=== PATIENT | male | born 1970 | race Caucasian/White ===

== ENCOUNTER → 2016-07-07 | Outpatient (CLI) | payer OTHER, MEDICARE ==
[~2016-07-07] MED LIST: ADVIL PO; AMIT25TA2 PO; ANTIBIOTIC EYE OU; BACL10TA2 OR; BACL10TA2 PO; CYMB1CAP PO; DICL25TA OR; DICL25TA PO; DICL500C PO; DICLOFENAC PO; GABA400C PO; HUMERA INJ; LEVI10TA OR; METH IM; METH2.5T PO; NEUR400C PO; NEXI20CA PO; PERC5TAB8 OR; PRED1TA PO; PRED2.5T PO; PRED5SOL2 PO; PRED5TAB PO; REST0.05 OU; SENN15TA2 PO; SIMV20TA2 PO; SOMA350T OR; TRAM50TA2 OR; VICO5TAB OR; VICO7.5T11 PO; ZOMI5TAB PO
--- NOTE | 2016-07-19 00:29 | ECWPNPC ---
PATIENT NAME: ANNETTA PAUL : 1970 GENDER: MALE VISIT DATE: 07/07/2016 DISCHARGE DATE: 07/07/16 1154 VISIT LOCKED DATE TIME: PHYSICIAN: ONEIL MORALES RESOURCE: ONEIL MORALES REASON FOR APPOINTMENT 1. CERVICAL HISTORY OF PRESENT ILLNESS HISTORY OF PRESENT ILLNESS: HERE FOR F/UAND MANAGEMENT OF THORACIC,CERVICAL AND LOW BACK PAIN.CHIEF CONCERN IS LEFT ARM BURNING PAIN.RATING PAIN VAS 7/10. WAS UNABLE TO GET LYRICA FOR SOME REASON THAT I PRESCRIBED LAST VISIT.HAS TRIALED TPI IN RECENT PAST WITH A FEW DAYS OF PAIN RELIEF.TRIALED [facility] WITH MAYBE 1-2 WEEK IMPROVEMENT.HX OF RHEUMATOID ARTHRITIS.DISCUSSED MEDICATION AND INTERVENTIONAL TREATMENT OPTIONS. HAS DCS IN PLACE WHICH HE DOES NOT USE AND IS IN PROCESS OF TALKING WITH [employer] ([employer] RERESENTAT[employer].THIS HAS BEEN IN SINCE 011 FOR LBP W HX OF LUMBAR SURGERY. FALL RISK SCREENING: SCREENING :NO FALLS IN THE PAST YEAR CURRENT MEDICATIONS TAKING VITAMIN C 500 MG TABLET CHEWABLE DIRECTED ORALLY ONCE A DAY TAKING DICLOFENAC SODIUM 75 MG TABLET DELAYED RELEASE 1 TABLET ORALLY TWICE A DAY TAKING GABAPENTIN 400 MG CAPSULE 1 CAPSULE ORALLY QID TAKING ZONISAMIDE 50 MG CAPSULE 1 CAPSULE ORALLY TWICE DAILY TAKING DOXAZOSIN MESYLATE 4 MG TABLET 1 TABLET ORALLY BID TAKING DULOXETINE HCL 60 MG CAPSULE DELAYED RELEASE PARTICLES 1 CAPSULE ORALLY ONCE A DAY TAKING FAMOTIDINE 40 MG TABLET 1 TABLET ORALLY ONCE A DAY TAKING OMEPRAZOLE 20 MG CAPSULE DELAYED RELEASE 2 CAPSULES ORALLY ONCE A DAY TAKING RESTASIS 0.05 % EMULSION 1 INTO AFFECTED EYE OPHTHALMIC TWICE A DAY TAKING SILDENAFIL CIT[place] 100 MG TABLET 1 TABLET NEEDED ORALLY ONCE A DAY TAKING METHOTREXATE SODIUM .8 MG ORALLY WEEKLY TAKING ENBREL 25 MG SOLUTION RECONSTITUTED SUBCUTANEOUS WEEK;LY ON SAT TAKING TIZANIDINE HCL 4 MG TABLET 1 TABLET NEEDED ORALLY BEFORE BEDTIME MAY REPEAT 4 HRS AFTER MDD2 TAKING LYRICA 75 MG CAPSULE 1 CAPSULE ORALLY TWICE A DAY MDD2 NOT-TAKING CUSTOM DO NOT USE TRAMADOL 50 MG TABLET 0.5 ORALLY TWICE DAILY, NOTES: 04/27/16 0530 NOT-TAKING MULTIVITAMINS TABLET DIRECTED ORALLY NOT-TAKING GABAPENTIN 300 300 MG TABLET 1 TAB(S) ORAL AT BEDTIME MEDICATION LIST REVIEWED AND RECONCILED WITH THE PATIENT PAST MEDICAL HISTORY PROSTATITIS EPIDIDYMITIS RA ALLERGIES NONE SOCIAL HISTORY GENERAL: TOBACCO USE ARE YOU A:NONSMOKER 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 NEW PATIENT PAIN DIARY TODAY'S VISITNOTES FROM 0-10, WHAT LEVEL IS YOUR PAIN TODAY?0 PAIN CLINIC PFS, CLERGY, PUBLIC HEALTH REFERRALS PFS REFERRAL NEEDED?NO CLERGY REFERRAL NEEDED?NO PUBLIC HEALTH REFERRAL NEEDED?NO WAS THE PROVIDER NOTIFIED OF ANY PERTINENT INFO?NO PFS REFERRAL NEEDED?NO CLERGY REFERRAL NEEDED?NO PUBLIC HEALTH REFERRAL NEEDED?NO WAS THE PROVIDER NOTIFIED OF ANY PERTINENT INFO?NO REVIEW OF SYSTEMS CONSTITUTIONAL: ANY CHANGE IN YOUR MEDICAL CONDITION? NO . CHILLS NO . FEVER NO . INFECTION: DO YOU HAVE NEW INFECTIONS? NO . DO YOU HAVE HISTORY OF MRSA? NO . MUSCULOSKELETAL: ANY NEW PATTERNS OF PAIN OR NUMBNESS? NO . GASTROENTEROLOGY: ANY NEW CHANGE IN BOWEL CONTROL? NO . GENITOURINARY: ANY NEW CHANGE IN BLADDER CONTROL? NO . IS THERE A CHANCE YOU COULD BE ? NO . HEMATOLOGY/LYMPH: DO YOU TAKE ANY BLOOD THINNERS? (FOR EXAMPLE- COUMADIN, PLAVIX, AGGRENOX, PLATEL, PRADAXA, OR XARELTO) NO . WHEN WAS YOUR LAST DOSE? DATE: TIME: . NEUROLOGY: HAVE YOU FALLEN IN THE PAST 6 MONTHS? NO . ANY NEW EXTREMITY NUMBNESS OR WEAKNESS? NO . CARDIOLOGY: DO YOU HAVE A PACEMAKER OR DEFIBRILLATOR? NO . RESPIRATORY: HAVE YOU BEEN SICK IN THE PAST WEEK? NO . FEVER NO . FLU LIKE SYMPTOMS? NO . COUGH NO . INTEGUMENTARY: DO YOU HAVE ANY RASHES OR OPEN SORES? NO . ALLERGIC/IMMUNO: ARE YOU ALLERGIC TO SHELLFISH OR IV DYE? NO . ANY NEW ALLERGIES? NO . PSYCHIATRIC: DO YOU HAVE THOUGHTS OF HURTING YOURSELF OR SOMEONE ELSE? NO . ARE YOU ABUSED, NEGLECTED, OR IN AN UNSAFE ENVIRONMENT? NO . ENDOCRINOLOGY: ARE YOU DIABETIC? NO . OTHER: DO YOU NEED ANY PRESCRIPTIONS? NO . IF YES, PLEASE LIST: ____ . ANY NEW PROBLEMS WITH YOUR MEDICATIONS? NO . WHEN DID YOU LAST EAT? ____ . WHEN DID YOU LAST DRINK? ____ . WHAT DID YOU LAST DRINK? ____ . NAME OF PERSON DRIVING YOU HOME? ____ . DO YOU HAVE ANY OTHER QUESTIONS OR CONCERNS NO . REVIEWED BY: PROVIDER: ONEIL MORALES ACCOUNT GENERAL MANAGER . VITAL SIGNS WT 200 LBS, HT 72 IN, BMI 27.12 INDEX, BP 122/80 MM HG, HR 83 /MIN, RR 18 /MIN, TEMP 97.1 F, OXYGEN SAT % 97%, NA INITIALS SC11:22. EXAMINATION CERVICAL SPINE/NECK: RANGE OF MOTION OF NECK:LIMITED ROTATIONS W INCREASE IN PAIN W AROJM. SHOULDER JOINT:FULL AROJM W INCREASE IN SHOULDER PAIN W ELEVATION OF LEFT ARM ABOVE SHOULDER HEIGHT.. REFLEXES:DTRS IN THE ARMS ARE 2+ THROUGHOUT AND EQUAL BILATERALLY. SENSATIONS:NORMAL BILATERALLY. MOTOR STRENGTH:SLIGHT DECREASE IN MOTOR STRENGTH LEFT ARM COMPARED W RIGHT. VERTEBRAL SPINE TENDERNESS:POSITIVE OVER C-SPINE. TRAPEZIUS TENDERNESS:PRESENT ON LEFT SIDE. DIAGNOSTIC DATA:REVIEWED CT CERVICAL SPINE 04-28-16. ASSESSMENTS PAIN IN THORACIC SPINE - M54.6 (PRIMARY) THORACIC RADICULOPATHY - M54.14 CERVICAL SPONDYLOSIS WITH RADICULOPATHY - M47.22 TREATMENT PAIN IN THORACIC SPINE REFILL LYRICA CAPSULE, 75 MG, 1 CAPSULE, ORALLY, TWICE A DAY MDD2, 30 DAY(S), 60, REFILLS 2 CERVICAL EPIDURAL RIGHT [facility]:CERVICAL SPONDYLOSIS W LEFT ARM RADICULOPATHY PROCEDURE CODES FA211 ESTABILISHED PATIENT [facility] FACILITY CHARGE FOLLOW UP 2WKPOST (REASON: [facility]) ELECTRONICALLY SIGNED BY KELLIE ELENA ON 07/18/2016 AT 10:14 AM EST DISCLAIMER : THIS IS A VISIT SUMMARY EXTRACTED FROM THE [employer] CHART. IT IS NOT A COPY OF THE [employer] PROGRESS NOTE. MISAEL
== END ==
LOC: M PAIN 11:20
PROVIDERS: ATTEND Nurse Practitioner Family
DX: Z09 Encounter for follow-up examination after completed treatment for conditions other than malignant neoplasm (principal); M54.6 Pain in thoracic spine; M47.22 Other spondylosis with radiculopathy, cervical region; M06.9 Rheumatoid arthritis, unspecified; Z79.899 Other long term (current) drug therapy

== ENCOUNTER → 2017-03-20 | Outpatient (CLI) | payer OTHER, MEDICARE ==
[~2017-03-20] MED LIST changes: +COLE1TAB PO; +DOXA1TAB40 PO; +FAMO40TA3 PO; +OMEP20CA3 PO; +RIZA10TA4 PO; +SULF50TA PO; +TIZA4CAP3 PO; +TYLE325T5 PO; +ZONI100C2 PO
[2017-03-20 12:08] LABS: BASO % 0.7 % (0.0-1.0); EOS # 0.1 10^3/uL (0.0-0.50); EOS % 1.8 % (0.0-3.0); IMMATURE GRANULOCYTE % 0.4 % (0-0); LYMPH # 1.5 10^3/uL (1.5-4.5); LYMPH % 33.8 % (24.0-44.0); MEAN CORPUSCULAR HEMOGLOBIN 31.6 pg (27.0-33.0); MEAN CORPUSCULAR HGB CONC 32.8 g/dl (32.0-36.5); MEAN CORPUSCULAR VOLUME 96.2 fl (80.0-96.0); MONO # 0.3 10^3/uL (0.0-0.8); MONO % 7.6 % (0.0-5.0); NEUTROPHILS # 2.5 10^3/uL (1.8-7.7); NEUTROPHILS % 55.7 % (36.0-66.0); PLATELET COUNT, AUTOMATED 222 10^3/uL (150-450); RED CELL DISTRIBUTION WIDTH 12.5 % (11.5-14.5); WHITE BLOOD COUNT 4.5 10^3/uL (4.0-10.0)
[2017-03-20 12:26] LABS: INR 0.93
[2017-03-20 13:19] LABS: ALBUMIN 4.3 GM/DL (3.2-5.2); ALBUMIN/GLOBULIN RATIO 1.39 (1.00-1.93); ALKALINE PHOSPHATASE 83 U/L (45-117); ALT/SGPT 47 U/L (12-78); ANION GAP 5 MEQ/L (8-16); AST/SGOT 27 U/L (15-37); BILIRUBIN,TOTAL 0.5 MG/DL (0.2-1.0); BLOOD UREA NITROGEN 19 MG/DL (7-18); CALCIUM LEVEL 8.5 MG/DL (8.5-10.1); CARBON DIOXIDE LEVEL 29 MEQ/L (21-32); CHLORIDE LEVEL 105 MEQ/L (98-107); CREATININE FOR GFR 1.07 MG/DL (0.70-1.30); GLOMERULAR FILTRATION RATE > 60.0 (>60); GLUCOSE, FASTING 89 MG/DL (70-105); SODIUM LEVEL 139 MEQ/L (136-145); TOTAL PROTEIN 7.4 GM/DL (6.4-8.2)
== END ==
LOC: M LAB 10:44
PROVIDERS: ATTEND Physician Assistant
DX: T85.113A Breakdown (mechanical) of implanted electronic neurostimulator, generator, initial encounter (principal); Y83.1 Surgical operation with implant of artificial internal device as the cause of abnormal reaction of the patient, or of later complication, without mention of misadventure at the time of the procedure

== ENCOUNTER → 2017-03-20 | Outpatient (CLI) | payer OTHER, MEDICARE ==
--- NOTE | 2017-03-20 21:12 | ECGEPIP ---
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
--- NOTE | 2017-03-21 02:28 | REP ---
Clinical: Stimulator malfunction . Comparison: 12/22/2013 . Technique: PA and lateral. Findings: The mediastinum and cardiac silhouette are normal. A spinal stimulator device is identified in the mid thoracic level. The lung sosa are clear and without acute consolidation, effusion, or pneumothorax. The skeletal structures are intact and normal. Impression: 1. No acute cardiopulmonary process. Signed by Jose Roberto Alvarenga MD 03/21/2017 02:20 A
== END ==
LOC: M EKG 10:48
PROVIDERS: ATTEND Neurological Surgery
DX: T85.113A Breakdown (mechanical) of implanted electronic neurostimulator, generator, initial encounter (principal); Y83.1 Surgical operation with implant of artificial internal device as the cause of abnormal reaction of the patient, or of later complication, without mention of misadventure at the time of the procedure

== ENCOUNTER 2017-03-26 06:08 | Day surgery (SDC) | payer OTHER ==
[~2017-03-26] VITALS: Ht 177.8 cm; Wt 86.2 kg
[2017-03-26] VITALS (7 sets, daily range): BP systolic 103–133; BP diastolic 52–77
[~2017-03-26 06:08] MED LIST changes: -TYLE325T5 PO
[2017-03-26] MEDS ORDERED: LIDOCAINE 1% SDV 5 ML VIAL SQ PRN (06:30)
[2017-03-26] MEDS ORDERED: BACITRACIN PWD 50,000 UNITS VIAL As Ordered ONE (06:35)
[2017-03-26] MEDS ORDERED: BUPIVACAINE LIPOSOME/PF 1.3% 20 ML VIAL (13.3MG/ML)(EXPAREL) As Ordered ONE (06:36)
[2017-03-26] MEDS ORDERED: BUPIVACAINE HCL 0.5% 10 ML VIAL As Ordered ONE (06:36)
[2017-03-26] MEDS ORDERED: LR 1,000 ML IV ONE (07:30)
[2017-03-26] MEDS ORDERED: PROPOFOL 200 MG/20 ML VIAL As Ordered ONE (08:21)
[2017-03-26] MEDS ORDERED: LIDOCAINE 2% INJ 100 MG/5 ML SDV (FOR ANES.) As Ordered ONE (08:21)
[2017-03-26] MEDS ORDERED: ONDANSETRON 4MG/2ML VIAL (J2405) As Ordered ONE (08:21)
[2017-03-26] MEDS ORDERED: fentaNYL 100 MCG/2 ML INJECTION (J3010) As Ordered ONE ×2 (08:21→10:14)
[2017-03-26] MEDS ORDERED: ROCURONIUM BROMIDE 50 MG/5 ML VIAL/SYRINGE As Ordered ONE (08:21)
[2017-03-26] MEDS ORDERED: MIDAZOLAM INJ 2 MG/2 ML VIAL (J2250) As Ordered ONE (08:21)
[2017-03-26] MEDS ORDERED: dexameTHASONE 4 MG/ML 1ML VIAL (J1100) As Ordered ONE (08:21)
[2017-03-26] MEDS ORDERED: NEOSTIGMINE 10 MG/10 ML VIAL (J2710) As Ordered ONE (08:21)
[2017-03-26] MEDS ORDERED: GLYCOPYRROLATE INJ 0.2 MG/ML 2 ML VIAL As Ordered ONE (08:21)
[2017-03-26] MEDS ORDERED: ePHEDrine SULFATE 25 MG/5 ML(5MG/ML) SYRINGE As Ordered ONE ×3 (08:32→09:28)
[2017-03-26] MEDS ORDERED: OMEPRAZOLE 20 MG CAP PO SCH (09:00)
[2017-03-26] MEDS ORDERED: BACITRACIN OINT 30GM As Ordered ONE (09:42)
--- NOTE | 2017-03-26 10:05 | REP ---
Partial thoracic spine series: Three views. History: Removal of dorsal column stimulator. 11 seconds of fluoroscopy time is reported. Findings: A sequence of three last image hold fluoroscopic spot radiographs of the thoracic spine are presented documenting intraoperative probe and forceps position. Signed by Matthias Houser MD 03/26/2017 03:03 P
[2017-03-26] MEDS: fentaNYL 100 MCG/2 ML INJECTION (J3010) IV PRN ×4 (10:17→10:55)
[2017-03-26] MEDS ORDERED: ONDANSETRON 4MG/2ML VIAL (J2405) IV PRN (10:30)
[2017-03-26] MEDS ORDERED: LR 1,000 ML IV SCH (10:30)
[2017-03-26] MEDS ORDERED: PERCOCET 5MG/325MG TAB PO PRN (10:45)
[2017-03-26] MEDS: MORPHINE 2 MG/ML 1ML SYRINGE IV PRN ×2 (12:06→17:38)
[2017-03-26] MEDS: ACETAMINOPHEN TAB 650MG DOSE (2X325MG) PO SCH ×3 (14:20→20:35)
[2017-03-26] MEDS ORDERED: tiZANidine 4 MG TAB PO PRN ×2 (19:00→20:15)
--- NOTE | 2017-03-26 19:27 | ROOPDOC ---
[facility] Report Of Operation Report of Operation DATE OF SURGERY: 03/26/2017 SURGEON: Dr. Betty Marte CHAIN PERSON: None PREOPERATIVE DIAGNOSIS: SCS system removal request for MRI imaging POSTOPERATIVE DIAGNOSIS: Same PROCEDURE PERFORMED: 1. SCS system removal. ANESTHESIA: GETA + 20 cc [employer] . ESTIMATED BLOOD LOSS: 50 cc. FINDINGS : SCS system; no infection. DRAINS: 0 COMPLICATIONS: None. DISPOSITION: Stable to the PACU. INDICATIONS FOR THE PROCEDURE HISTORY: Mr. casey is a 46 y/o M with past medical history of previous lumbar surgery , low back and leg pain, which was treated by implantation of spinal cord stimulator (SCS). Recently he developed neck and arm pain and neurologist requested removal of [id number] SCS system in order to have instrumental evaluation of new symptoms. SURGICAL RISKS: The patient and her family were well apprised of all objectives, benefits, risks and potential complications of the procedure, including but not limited to : worsening of current status, the possible need for further procedures, the risk of infection, headaches, CSF leak, possible spinal nerve injury resulting in paralysis, infection, injury to major vessels causing hemorrhage, stroke, loss of language function, coma and even . No assurance was given whether symptoms would improve following the procedure. The surgery is technically difficult procedure and despite the significant discomfort for the patient and the best effort of the physician, the surgery may be unsuccessful or may need to be aborted. Informed consent was obtained and secured in the chart after the patient and family voiced understanding of these risks and decided to proceed with the operation. DESCRIPTION OF THE PROCEDURE The patient was transferred to the operating room. He was given preoperative prophylactic IV antibiotics. ANESTHESIA: The patient was sedated and intubated without difficulty by the anesthesia service. Eyes were taped shut after ointment was applied to prevent corneal abrasion. A Jennie Hugger was placed over the upper body to maintain control of core body temperature. POSITIONING: The patient was turned prone on frame gel pads of Froylan table. All pressure points were carefully padded. OPERATIVE TECHNIQUE: The patient was prepped and draped in the standard sterile fashion. Previous surgical scar in midline was excised and electrodes anchors were dissected from scar tissue, stay sutures were cut, and plate electrode pulled out spinal canal with difficult scar dissection and electrode damage. C-arm fluoroscopy was done to ensure the absence of metal parts in spinal canal. Second surgical scar in flank were excised and IPG, connectors and leads have been removed without difficulty. IPG was disconnected from lead and removed. Hemostasis was meticulously achieved. The wounds were copiously irrigated with antibiotic saline solution. Subcutaneous tissue and skin was approximated with 1.0 Vycril suture. The skin was then approximated with surgical quoc. Bacitracin ointment was applied on incision before sterile wound dressing. All sponge counts, needle counts and instrument counts were correct at the end of the case times two. The patient tolerated the procedure well, without any complications and was transferred in stable condition to the recovery room. BETTY MARTE MD Mar 26, 2017 19:27
[2017-03-26] MEDS: OMEPRAZOLE 20 MG CAP PO SCH (20:36)
[2017-03-26] MEDS ORDERED: GABAPENTIN 400 MG CAP PO SCH (21:00)
[2017-03-26] MEDS ORDERED: DOXAZOSIN MESYLATE 4 MG TAB PO SCH (21:00)
[2017-03-27] VITALS: BP 104/54
[2017-03-27] MEDS: ACETAMINOPHEN TAB 650MG DOSE (2X325MG) PO SCH ×3 (00:57→09:12)
[2017-03-27 04:00] VITALS: BP 103/57
[2017-03-27 08:00] VITALS: BP 115/78
[2017-03-27] MEDS ORDERED: FAMOTIDINE 20 MG TAB PO SCH (09:00)
[2017-03-27] MEDS: OMEPRAZOLE 20 MG CAP PO SCH (09:12)
[2017-03-27] MEDS ORDERED: TYLE325T5 PO (09:58)
== END 2017-03-27 11:00 | disposition home or self-care (01) ==
LOC: M SDC 06:08 → EDSTATUS 07:30 → M PED 11:18 → M SDC 03-27 11:00
PROVIDERS: ATTEND Neurological Surgery
DX: T85.113A Breakdown (mechanical) of implanted electronic neurostimulator, generator, initial encounter (principal); X58.XXXA Exposure to other specified factors, initial encounter; Y93.89 Activity, other specified; Y92.89 Other specified places as the place of occurrence of the external cause; Y99.8 Other external cause status; M54.5 Low back pain; G89.29 Other chronic pain; K21.9 Gastro-esophageal reflux disease without esophagitis; M06.9 Rheumatoid arthritis, unspecified; G43.909 Migraine, unspecified, not intractable, without status migrainosus; E78.00 Pure hypercholesterolemia, unspecified; K44.9 Diaphragmatic hernia without obstruction or gangrene; Z88.5 Allergy status to narcotic agent; Z88.8 Allergy status to other drugs, medicaments and biological substances; Z79.899 Other long term (current) drug therapy; Z87.891 Personal history of nicotine dependence
CPT/HCPCS: 63662; 76000; A6024; J0690; J1100; J2250; J2405; J2710; J3010

== ENCOUNTER → 2019-03-18 | Outpatient (CLI) | payer OTHER ==
[~2019-03-18] MED LIST changes: -METH IM; +METH2000 IM; +OMEP1CAP73 PO; -OMEP20CA3 PO; -RIZA10TA4 PO; +RIZA10TA58 PO; +TIZA4CAP PO; -TIZA4CAP3 PO; +TYLE325T5 PO; +ZONI100C17 PO; -ZONI100C2 PO
[2019-03-18 14:51] LABS: APPEARANCE, URINE CLEAR (CLEAR); BACTERIA, URINE AUTO NEGATIVE (NEGATIVE); BILIRUBIN, URINE AUTO NEGATIVE (NEGATIVE); BLOOD, URINE BLOOD NEGATIVE (NEGATIVE); COLOR, URINE YELLOW (YELLOW); GLUCOSE, URINE (UA) AUTO NEGATIVE (NEGATIVE); KETONE, URINE AUTO NEGATIVE (NEGATIVE); LEUKOCYTE ESTERASE, URINE AUTO NEGATIVE (NEGATIVE); NITRITE, URINE AUTO NEGATIVE (NEGATIVE); PROTEIN, URINE AUTO NEGATIVE (NEGATIVE); RBC, URINE AUTO 0 /HPF (0-3); SPECIFIC GRAVITY URINE AUTO 1.005 (1.002-1.035); SQUAMOUS EPITHELIAL CELL UR AU 0 /HPF (0-6); UROBILINOGEN, URINE AUTO 0.2 mg/dL (0.0-2.0); WBC, URINE AUTO 0 /HPF (0-3)
== END ==
LOC: M SMT 09:25
PROVIDERS: ATTEND Nurse Practitioner Women's Health
DX: Z12.5 Encounter for screening for malignant neoplasm of prostate (principal)
CPT/HCPCS: 36415; 81001; 87086; G0103; G0463

== ENCOUNTER → 2019-05-30 | Outpatient (REF) | payer OTHER, MEDICARE ==
[~2019-05-30] MED LIST changes: +OMEP-172 PO; -OMEP1CAP73 PO; -ZONI100C17 PO; +ZONI100C2 PO
== END ==
LOC: M LAB LCGH 13:52
PROVIDERS: ATTEND Surgery
DX: K31.89 Other diseases of stomach and duodenum (principal); K21.9 Gastro-esophageal reflux disease without esophagitis; Z80.0 Family history of malignant neoplasm of digestive organs